=== PATIENT | female | born 1965 | race Caucasian/White ===

== ENCOUNTER 2021-02-22 07:41 | Outpatient (CLI) | payer BC, SELFPAY ==
[2021-02-22 08:26] VITALS: BP 106/63; PULSE 59; RESP 17; TEMP 36.8; O2SAT 99; BMI 23.3
[2021-02-22 08:46] VITALS: BP 114/69; PULSE 60; RESP 15; TEMP 36.8; O2SAT 99
[2021-02-22 09:25] VITALS: PULSE 62; RESP 18; TEMP 36.8; O2SAT 99
--- NOTE | 2021-03-04 14:04 | DCPLANNER ---
automotive finance manager had message that patient received the monoclonal antibody infusion. automotive finance manager called phone number [phone] to check on patient after the infusion. automotive finance manager unable to speak with patient at this time, a voicemail was left for patient to return shoe caser phone call.
== END 2021-02-22 07:42 | disposition home or self-care (01) ==
PROVIDERS: PCP Nurse Practitioner Family; Visit Provider Nurse Practitioner Family
DX: U07.1 COVID-19 (principal)
CPT/HCPCS: 96365

== ENCOUNTER 2021-04-27 09:11 | Outpatient (CLI) | payer OTHER, SELFPAY ==
--- NOTE | 2021-04-27 09:23 | CT_ITS ---
WS: [id number] CT CHEST WITH INTRAVENOUS CONTRAST HISTORY: MULTIPLE LUNG NODULES, OTHER NONSPECIFIC ABNORMAL FINDINGS. TECHNIQUE: Contiguous 5 mm axial imaging performed on the thorax. Coronal and sagittal reformats are submitted. All CT scans at [facility] use at least one of these dose optimization techniques: automated exposure control; mA and/or kV adjustment per patient size (includes targeted exams where dose is matched to clinical indication); or iterative reconstruction. CONTRAST: Omnipaque 300; 95 mL IV. DLP: 605.66 mGycm COMPARISON: None available. Lungs and central airway: Focal linear 4 mm scar in the posterior RIGHT upper lobe. 3 mm nodule LEFT lower lobe, image 48 of series 3. No pneumonia. Chronic emphysema. Pleura: Normal. No pleural effusion. Heart and pericardium: Normal size heart with no pericardial effusion. Mediastinum and tyler: No mediastinum or hilar adenopathy. Vessels: Normal size aortic and pulmonary artery. No coronary artery calcifications. Chest wall and lower neck: No soft tissue masses. Upper abdomen: Mild cortical thinning upper pole RIGHT kidney. 1.5 cm cyst in the posterior RIGHT lob e of the liver. Celiac axis arises as a normal variant from the aorta. Separate origins of the hepati c artery and the splenic artery. Osseous structures: Moderate degenerative disc disease and endplate changes at L1-2. CT/CT chest w con* [id number] IMPRESSION: 1. Small bilateral pulmonary nodules as above. No prior study for comparison t o evaluate for any interval change. [address] can be obtain ed at the clinician's discretion if thought necessary. 2. No adenopathy. 3. Hepatic cyst, 1.5 cm.
[2021-04-27] MEDS: iohexol 300 mg/mL 100 mL Btl IV (09:47)
== END 2021-04-27 09:12 | disposition home or self-care (01) ==
PROVIDERS: PCP Nurse Practitioner Family; Visit Provider Nurse Practitioner Family
DX: R91.8 Other nonspecific abnormal finding of lung field (principal); K76.89 Other specified diseases of liver
CPT/HCPCS: 71260; Q9967

== ENCOUNTER → 2022-06-08 15:26 | Outpatient (BNVA) | payer OTHER, SELFPAY | PROVIDERS: PCP Nurse Practitioner Family; Referring Provider Registered Nurse; Visit Provider Orthopaedic Surgery | DX: M48.062 Spinal stenosis, lumbar region with neurogenic claudication (principal); M47.816 Spondylosis without myelopathy or radiculopathy, lumbar region | CPT/HCPCS: 72110 ==

== ENCOUNTER 2022-07-09 06:00 | Outpatient (RCR) | payer OTHER, SELFPAY | END 2022-08-08 23:59 | disposition home or self-care (01) | LOC: WPT 06:00 | PROVIDERS: PCP Nurse Practitioner Family; Visit Provider Orthopaedic Surgery | DX: M48.062 Spinal stenosis, lumbar region with neurogenic claudication (principal) | CPT/HCPCS: 97110; 97112; 97161; 97530 ==

== ENCOUNTER 2022-08-09 06:00 | Outpatient (RCR) | payer OTHER, SELFPAY | END 2022-09-05 23:59 | disposition home or self-care (01) | LOC: WPT 06:00 | PROVIDERS: PCP Nurse Practitioner Family; Visit Provider Orthopaedic Surgery | DX: M48.062 Spinal stenosis, lumbar region with neurogenic claudication (principal) | CPT/HCPCS: 97110 ==

== ENCOUNTER 2022-10-04 15:34 | Outpatient (CLI) | payer OTHER, SELFPAY ==
--- NOTE | 2022-10-04 16:00 | MR_ITS ---
WS: [id number] MRI LUMBAR SPINE NONCONTRAST HISTORY: low back pain COMPARISON: None available. TECHNIQUE: Sagittal and axial multisequence imaging is submitted. Straightening of the normal cervical lordosis. Osseous fusion between C5 and C6. Increased T2 signal in the central cervical cord seen only on the localizer imaging may represent a syrinx. Very slight c ord deformity at C6-7. Possible myelomalacia or syrinx. T8-9: Central small disc protrusion. Slight increase in the lumbar lordosis. L1 retrolisthesis by 5 mm. No lumbar spine fractures. Reactiv e marrow edema along the adjacent endplates of L1 and L2. Severe disc space narrowing and desiccation at L1-2. Conus terminates normally at L1-2 disc level. T12-L1: Small LEFT paracentral disc protrusion. No stenosis. L1-L2: L1 retrolisthesis with osteophytic ridging encroaching upon the ventral thecal sac. Mild ligam entum flavum and facet arthritis. Disc encroachment into the subarticular recesses, RIGHT greater isaiah n LEFT. Moderate bilateral foraminal stenosis. L2-L3: Very slight retrolisthesis of L2 with annular disc bulging and facet joint arthritis. Mild to moderate bilateral foraminal stenosis. L3-L4: Mild annular disc bulge with ligamentum flavum and facet arthritis. Mild central, bilateral flowers barticular recess and foraminal stenosis. L4-L5: Mild annular disc bulge with ligamentum flavum and facet arthritis. Mild LEFT foraminal stenos is. L5-S1: Mild disc bulging. Slightly asymmetric bulging to the LEFT. Very slight disc contact but no di splacement of the LEFT S1 nerve root. Mild LEFT foraminal narrowing. MR/MR lumbar spine wo con* [id number] IMPRESSION: 1. Severe degenerative disc disease at L1-2 with 5 mm L1 retrolisthesis. 2. Moderate bilateral foraminal stenosis at L1-2 with disc encroachment into t he subarticular recesses. 3. Mild to moderate bilateral foraminal stenosis at L2-3. 4. Mild central, bilateral subarticular recess and foraminal stenosis at L3-4. 5. Mild LEFT foraminal stenosis at L4-5 and L5-S1. 6. Very minimal disc contact on the LEFT S1 nerve root. 7. Possible syrinx in the cervical cord or myelomalacia. Consider MRI evaluati on of the cervical spine.
== END 2022-10-04 15:35 | disposition home or self-care (01) ==
PROVIDERS: PCP Registered Nurse; Visit Provider Orthopaedic Surgery
DX: M51.36 Other intervertebral disc degeneration, lumbar region (principal); M48.061 Spinal stenosis, lumbar region without neurogenic claudication; M48.07 Spinal stenosis, lumbosacral region
CPT/HCPCS: 72148

== ENCOUNTER → 2023-08-02 09:54 | Outpatient (BNVA) | payer BC, SELFPAY | PROVIDERS: PCP Nurse Practitioner Family; Referring Provider Nurse Practitioner Family; Visit Provider Internal Medicine Pulmonary Disease | DX: J45.909 Unspecified asthma, uncomplicated (principal) | CPT/HCPCS: 36415; 82785; 85007; 85027; 86003 ==

== ENCOUNTER → 2023-08-14 13:57 | Outpatient (BNVA) | payer BC, SELFPAY | PROVIDERS: PCP Nurse Practitioner Family; Visit Provider Orthopaedic Surgery | DX: M48.062 Spinal stenosis, lumbar region with neurogenic claudication (principal); Z01.812 Encounter for preprocedural laboratory examination | CPT/HCPCS: 36415; 72110; 80048; 81003; 85025; 86331; 86606; 86609 ==

== ENCOUNTER 2023-08-22 06:51 | Outpatient (CLI) | payer BC, SELFPAY ==
[2023-08-22 07:37] VITALS: PULSE 62; RESP 18; O2SAT 99
[2023-08-22] MEDS: albuterol 2.5 mg/3 mL Neb INHALATION (07:37)
[2023-08-22 07:42] VITALS: PULSE 67
== END 2023-08-22 06:52 | disposition home or self-care (01) ==
LOC: RT 06:51
PROVIDERS: PCP Nurse Practitioner Family; Visit Provider Internal Medicine Pulmonary Disease
DX: J45.909 Unspecified asthma, uncomplicated (principal)
CPT/HCPCS: 36415; 82785; 85007; 85027; 86003; 94060; 94618; 94726; 94729; J7613

== ENCOUNTER 2023-09-06 05:51 | Day surgery (SDC) | payer BC, SELFPAY ==
[2023-09-06] VITALS (12 sets, daily range): BP systolic 115–169; BP diastolic 58–89; PULSE 59–115; RESP 12–18; TEMP 36.1–36.5; O2SAT 97–100; BMI 25.2
--- NOTE | 2023-09-06 06:36 | W.PM.OPSUD ---
Surgery/Procedure H&P Update DATE OF PROCEDURE: September 06, 2023 DATE H&P PERFORMED: 09/05/23 H&P UPDATE INFORMATION: I have reviewed H&P completed within last 30 days, I have examined patient prior to procedure and No changes to prior documentation PREOP DIAGNOSIS: Lumbar stenosis with neurogenic claudication PLANNED PROCEDURE: Operation Date: 09/06/23 07:00 Proposed Procedures p Lumbar Spine Decompression/left L4-5 minimally invasive decompression(Left) - Zan Huerta DO
[2023-09-06] MEDS: sodium chloride 0.9% 1,000 ML 30 ML IV (06:39)
[2023-09-06] MEDS: scopolamine 1.5 Patch 1 PATCH TRANSDERMA (06:41)
[2023-09-06] MEDS: ceFAZolin 2,000 MG in sodium chloride 0.9% (plus) 50 ML 100 MG IV (06:59)
--- NOTE | 2023-09-06 07:35 | ANES.PREANE2 ---
Pre-Anesthetic Assessment Height/Weight: Height 1.65 m Weight 68.946 kg Temp Pulse Resp BP Pulse Ox O2 Del Method 97.4 F L 64 18 115/71 100 Room Air 09/06/23 06:12 09/06/23 06:12 09/06/23 06:12 09/06/23 06:12 09/06/23 06:12 09/06/23 06:13 Preop Diagnosis: Lumbar stenosis with neurogenic claudication Operation Date: 09/06/23 07:00 Proposed Procedures p Lumbar Spine Decompression/left L4-5 minimally invasive decompression(Left) - Zan Huerta DO Familial anesthetic complications: none Was Beta Tawanna taken within 24 hours: N/A Was Clonidine taken within 24 hours: N/A Last intake: Intake Last Liquid Date 09/05/23 Last Liquid Time 19:00 Last Solid Date 09/05/23 Last Solid Time 19:00 Social No alcohol and No tobacco Exam alert, oriented x 3, clear to auscultation bilaterally and regular rate & rhythm Airway Submandibular: within normal limits Cervical ROM: within normal limits Mallampati: Class II Dentition: full Pulmonary Asthma Musc/skel Lower Back Pain and Osteoarthritis/DJD Anesthetic Plan ASA status: 2 Anesthesia: General Medications/Allergies Home Medications Medication Instructions Recorded Confirmed Last Taken Type estradiol 0.075 mg/24 hr weekly 1 patch transdermal 06/08/22 09/05/23 Unknown History transdermal patch fluoxetine 20 mg capsule 20 mg PO DAILY 06/08/22 09/06/23 09/05/23 History tizanidine 4 mg tablet 4 mg PO BID PRN muscle spasticity 07/19/23 09/06/23 09/04/23 Rx #60 tabs acetaminophen 500 mg capsule 500 mg PO Q6H PRN Pain (Scale 08/02/23 09/05/23 09/03/23 History Score 4-6) budesonide 160 mcg-glycopyr 9 2 inh inhalation BID #10.7 grams 08/02/23 09/05/23 09/05/23 Rx mcg-formot 4.8 mcg/actuation HFA inhaler (Breztri Aerosphere) levocetirizine 5 mg tablet (Xyzal) 5 mg PO DAILY 09/05/23 09/06/23 09/05/23 History Allergies Allergy/AdvReac Type Severity Reaction Status Date / Time Sulfa (Sulfonamide Allergy Unknown ALGY-Bliste Verified 09/05/23 09:17 Antibiotics) r tramadol [From Ultram] AdvReac Unknown Verified 09/05/23 09:17 Current Medications Generic Name Dose Route Start Last Admin Trade Name Freq PRN Reason Stop Dose Admin Sodium Chloride 1,000 mls @ 30 mls/hr 09/06/23 06:00 09/06/23 06:39 Sodium Chloride 0.9% IV 09/07/23 05:59 30 mls/hr .Q24H ASHLEY Administration PFSH Anesthesia Medical History Asthma Social History Smoking and tobacco/nicotine status: never used tobacco/nicotine Quit status (tobacco/nicotine): has quit using Year quit tobacco: 1996 Former quit date comment: 1ppd X 13 years Data Anesthesia Cardiac Studies: No Data to Display
[2023-09-06] MEDS: lidocaine-epi 1% 20 mL INJ INJECTION (07:48)
--- NOTE | 2023-09-06 08:10 | PM.OP ---
Operative Report Date of procedure: September 06, 2023 Pre-op diagnosis: Lumbar stenosis with neurogenic claudication Post-op diagnosis: same Procedure done: L4-5 laminectomy with partial facetectomy Surgeon: Zan Huerta DO Estimated blood loss (mL): 5 Procedure: L4-5 laminectomy with partial facetectomy Patient is brought to the operative suite. After undergoing anesthesia they are placed in the prone position. All areas of impingement are well padded. Patient is then prepped and draped in the normal sterile fashion. A skin incision is made over the L4-5 level. This is confirmed under c-arm guidance. A series of dilators are passed and the tubular retractor is docked on the L4 lamina. A bovie is used to clear the soft tissue off the lamina and the L 4/5 facet joint. A high speed gallito is then used to perform the laminectomy and take down the medial aspect of the L 4/5 facet joint. A kerrison rongeure was then used to take down the remaining lamina and smooth the edge of the laminectomy up to the point where the ligamentum flavum attaches. Attention was then brought to the medial aspect of the facet joint. The remaining medial aspect of the superior and inferior aspect of the facet joint were taken down with the kerrison from the pedicle of L4 to L 5. The facet joint had significant hypertrophy. Attention was then brought to the Ligamentum Flavum. The ligament was taken down from the lamina of L4 to L5 and out medially to the remaining facet joint. The ligament was thick. The dura was then exposed. The dura was in good repair. The L4 nerve was then traced with a curette out the L4/5 foramen and found to be adequately decompressed. The L5 nerve was traced with a curette around the L5 pedicle. The lateral recess was opened with a kerrison helping to further decompress the L5 nerve. Wound is then irrigated copiously with saline and surgiflo is used to stop any bleeding. The tubular retractor is removed and the wound is closed with vicryl and monocryl suture. Glue is then used to protect the wound. A sterile dressing is then placed. Patient was then placed in the supine position and transferred to the PACU in stable condition.
[2023-09-06] MEDS: fentaNYL 50 mcg/mL INJ 2mL IVP (08:22)
[2023-09-06] MEDS: HYDROcodone-acetaminophen 10-325 mg Tablet 1 TAB PO (09:19)
--- NOTE | 2023-09-06 10:53 | XR_ITS ---
WS: [id number] Exam: XR lumbar spine 1V [id number] Date/Time of Exam: 09/06/2023 10:53 AM Reason For Exam: OR pic, decompression Single AP C-arm image of the lumbar spine is submitted. Image is obtained for preoperative localization purposes.
--- NOTE | 2023-09-06 14:16 | ANE.PACU2 ---
Inpatient post-anesthesia follow up: Airway intact: Yes Vital signs: Temperature 97.4 F Pulse Rate 59 Respiratory Rate 17 Blood Pressure 131/76 Pulse Oximetry 100 Oxygen Delivery Me thod Room Air Oxygen Flow Rate Fraction of Inspir ed Oxygen Hydration adequate: Yes Nausea and vomiting: No Pain level: 3 Mental status: Baseline
== END 2023-09-06 09:40 | disposition home or self-care (01) ==
PROVIDERS: PCP Nurse Practitioner Family; Visit Provider Orthopaedic Surgery
PROC: (CPT 63005; principal; 2023-09-06 07:00)
DX: M48.062 Spinal stenosis, lumbar region with neurogenic claudication (principal)
CPT/HCPCS: 63047; 72020; 76000; J0690; J1100; J2405; J2704; J3010; J3490; J7030